=== PATIENT | female | born 2005 | race Two or more races ===

== ENCOUNTER 2023-11-03 09:37 | Emergency (ER) | payer MEDICAID, OTHER ==
[~2023-11-03] VITALS: Ht 162.6 cm; Wt 53.3 kg
[2023-11-03] MEDS ORDERED: AUG875T PO (12:16)
[2023-11-03] MEDS ORDERED: CIPR1SUS8 OT (12:16)
[2023-11-03 13:35] VITALS: BP 110/60; PULSE 100; RESP 19; TEMP 98.8; O2SAT 98
== END 2023-11-03 13:38 | disposition home or self-care (01) ==
LOC: ER 09:37
DX: H66.93 Otitis media, unspecified, bilateral (principal); Z79.899 Other long term (current) drug therapy